=== PATIENT | male | born 1995 | race Caucasian/White ===

== ENCOUNTER 2017-02-24 19:45 | Emergency (ER) | payer BC, OTHER ==
[~2017-02-24] VITALS: Ht 177.8 cm; Wt 90.0 kg
[2017-02-24 19:52] VITALS: Ht 177.8 cm; Wt 90.0 kg
--- NOTE | 2017-02-24 21:41 | RADRPT ---
PROCEDURE: Abdominal ultrasound CLINICAL INDICATION: Abdominal pain TECHNIQUE: Guerrero-scale sonographic images of the 4 quadrants of the abdomen. COMPARISON: None. FINDINGS: No evidence of free fluid is seen. IMPRESSION: No free fluid. RPTAT: AADD .Taurus Orozco MD, MD Date Time Electronically viewed and signed by .Taurus Orozco MD, on 02/24/2017 21:41 .B/
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
[2017-02-24] MEDS ORDERED: IBUP-1542 PO (22:35)
[2017-02-24] MEDS ORDERED: ORPH100T PO (22:35)
[2017-02-24 22:48] VITALS: BP 120/70; PULSE 78; RESP 20; TEMP 98
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
== END 2017-02-24 22:49 | disposition home or self-care (01) ==
LOC: FTE 19:45
DX: R07.81 Pleurodynia (principal); M54.9 Dorsalgia, unspecified; R51 Headache; Z04.1 Encounter for examination and observation following transport accident
CPT/HCPCS: 70450; 71100; 72100; 76705; Z7502

== ENCOUNTER 2018-08-30 20:01 | Emergency (ER) | END 2018-08-30 21:00 | disposition home or self-care (01) ==

== ENCOUNTER 2018-09-05 13:34 | Emergency (ER) | END 2018-09-05 16:35 | disposition home or self-care (01) ==